=== PATIENT | male | born 1990 | race Caucasian/White ===

== ENCOUNTER 2021-01-16 20:39 | Emergency (ER) | payer MEDICARE, OTHER ==
[2021-01-16 20:58] VITALS: TEMP 97.9
--- NOTE | 2021-01-16 21:55 | XR ---
EXAMINATION TYPE: XR chest 2V DATE OF EXAM: 01/16/2021 COMPARISON: NONE HISTORY: Cough. Short of breath. TECHNIQUE: 2 views FINDINGS: Heart and mediastinum are normal. Lungs are clear. Diaphragm is normal. Bony thorax appears normal. IMPRESSION: Normal chest.
[2021-01-16] MEDS ORDERED: ACETAMINOPHEN TAB 500 MG TAB PO STA (22:13)
--- NOTE | 2021-01-16 22:13 | ED ---
General Adult HPI - General Source: patient, RN notes reviewed Mode of arrival: ambulatory Limitations: no limitations <Sarabjit Mckeon - Last Filed: 01/16/21 22:19> <Angela He - Last Filed: 01/20/21 02:50> - General Chief complaint: Upper Respiratory Infection Stated complaint: Poss COVID Time Seen by Provider: 01/16/21 21:05 - History of Present Illness Initial comments: 30-year-old male without any significant past medical history presents to the emergency room for a chief complaint of cough. Patient states he had a cough starting about one week ago. States that he was exposed to Sesay virus he believes. Patient is unsure if he has had fevers. Denies shortness of breath or chest pain.Patient has no other complaints at this time including shortness of breath, chest pain, abdominal pain, nausea or vomiting, headache, or visual changes. (Sarabjit Mckeon) - Related Data Previous Rx's Medication Instructions Recorded Benzonatate [Tessalon Perles] 200 mg PO Q8H PRN #15 capsule 01/16/21 Allergies Allergy/AdvReac Type Severity Reaction Status Date / Time No Known Allergies Allergy Verified 01/16/21 20:58 Review of Systems ROS Other: All systems not noted in ROS Statement are negative. <Sarabjit Mckeon - Last Filed: 01/16/21 22:19> ROS Other: All systems not noted in ROS Statement are negative. <Angela He - Last Filed: 01/20/21 02:50> ROS Statement: Those systems with pertinent positive or pertinent negative responses have been documented in the HPI. Past Medical History Past Medical History: No Reported History History of Any Multi-Drug Resistant Organisms: None Reported Past Surgical History: No Surgical Hx Reported Past Psychological History: No Psychological Hx Reported Smoking Status: Never smoker Past Alcohol Use History: None Reported Past Drug Use History: None Reported <Sarabjit Mckeon - Last Filed: 01/16/21 22:19> General Exam Limitations: no limitations General appearance: alert, in no apparent distress Head exam: Present: atraumatic, normocephalic, normal inspection Eye exam: Present: normal appearance, PERRL, EOMI. Absent: scleral icterus, conjunctival injection, periorbital swelling ENT exam: Present: normal exam, mucous membranes moist Neck exam: Present: normal inspection, full ROM. Absent: tenderness, meningismus, lymphadenopathy Respiratory exam: Present: normal lung sounds bilaterally. Absent: respiratory distress, wheezes, rales, rhonchi, stridor Cardiovascular Exam: Present: regular rate, normal rhythm, normal heart sounds. Absent: systolic murmur, diastolic murmur, rubs, gallop, clicks GI/Abdominal exam: Present: soft, normal bowel sounds. Absent: distended, tenderness, guarding, rebound, rigid <Sarabjit Mckeon - Last Filed: 01/16/21 22:19> Course Vital Signs 01/16/21 01/16/21 01/16/21 20:56 22:37 22:38 Temperature 97.9 F Pulse Rate 93 92 Respiratory 20 16 16 Rate Blood Pressure 135/86 139/78 O2 Sat by Pulse 96 96 Oximetry Medical Decision Making <Sarabjit Mckeon - Last Filed: 01/16/21 22:19> <Angela He - Last Filed: 01/20/21 02:50> - Medical Decision Making Patient did test positive for coronavirus. His oxygen saturations are within acceptable limits. His chest x-ray is negative for pneumonia. Patient does not qualify for antibody infusion. Patient will be discharged home to follow up with primary care. He will return here for any worsening symptoms. (Sarabjit Mckeon) I was available for consultation in the emergency department. The history and physical exam were done by the midlevel provider. I was consulted for this patients care. I reviewed the case with the midlevel provider and based on their presentation of the patient, I agree with the assessment, medical decision making and plan of care as documented. Chart was dictated using [employer] dictation software. Attempts were made to correct any dictation errors however some typographical errors may persist. Patient was seen during a national state of emergency due to the Covid-19 pandemic. (Angela He) - Lab Data Lab Results 01/16/21 Range/Units 20:58 Coronavirus (PCR) Detected A (Not Detectd) Disposition Is patient prescribed a controlled substance at d/c from ED?: No Time of Disposition: 22:12 <Sarabjit Mckeon - Last Filed: 01/16/21 22:19> <Angela He Mauri - Last Filed: 01/20/21 02:50> Clinical Impression: COVID-19 Disposition: HOME SELF-CARE Condition: Good Instructions (If sedation given, give patient instructions): Coronavirus Disease 2019 (COVID-19) Additional Instructions: Please take Tylenol for fever. Follow-up with your doctor in one to 2 days. Return to the emergency room for any worsening symptoms. Prescriptions: Benzonatate [Tessalon Perles] 200 mg PO Q8H PRN #15 capsule PRN Reason: Cough Referrals: Alexandre Aggarwal DO [Primary Care Provider] - 1-2 days
[2021-01-16 22:38] VITALS: RESP 16
[2021-01-16 22:39] VITALS: BP 139/78; PULSE 92
== END 2021-01-16 22:39 | disposition home or self-care (01) ==
LOC: EC 20:39
DX: U07.1 COVID-19 (principal)
CPT/HCPCS: 71046; 87635; 99283

== ENCOUNTER → 2025-02-04 | Outpatient (CLI) | payer MEDICARE, OTHER ==
--- NOTE | 2025-02-04 13:58 | XR ---
EXAMINATION TYPE: XR abdomen 2V DATE OF EXAM: 02/04/2025 COMPARISON: NONE HISTORY: Constipation TECHNIQUE: Upright and supine views of the abdomen were obtained. FINDINGS: Small bowel demonstrates no evidence for dilatation or air fluid levels. Moderate amount of stool is present within the colon. Most prominent within the transverse and descen ding colon. No convincing evidence for pneumoperitoneum. Right-sided pelvic phlebolith. The lung bases are clear. The osseous structures are intact. IMPRESSION: 1. Overall nonobstructive bowel gas pattern. 2. Moderate colonic stool burden correlating with reported constipation. [facility], , 02/04/2025 1:56 PM
== END | disposition home or self-care (01) ==
LOC: RADXRYALE 13:41
PROVIDERS: ATTEND Physician Assistant Medical
DX: K59.00 Constipation, unspecified (principal)
CPT/HCPCS: 74019